=== PATIENT | male | born 1975 | race Caucasian/White ===

== ENCOUNTER 2023-07-06 21:38 | Emergency (ER) | payer OTHER ==
[~2023-07-06] VITALS: Ht 172.7 cm; Wt 74.8 kg
[~2023-07-06 21:38] MED LIST: MOTRIN800 MG PO
[2023-07-06] MEDS ORDERED: LISINOPRIL20 MG PO (22:09)
[2023-07-06] MEDS ORDERED: VITAMIN D310 MC2 PO (22:09)
[2023-07-06] MEDS ORDERED: PRILOSEC20 M1 PO (22:10)
[2023-07-06] MEDS ORDERED: CYCLOBENZAPRINE5 M3 PO (22:27)
== END 2023-07-06 22:43 | disposition home or self-care (01) ==
LOC: ED 21:38
DX: S16.1XXA Strain of muscle, fascia and tendon at neck level, initial encounter (principal); Z79.899 Other long term (current) drug therapy; X50.0XXA Overexertion from strenuous movement or load, initial encounter; Y93.K1 Activity, walking an animal; Y92.89 Other specified places as the place of occurrence of the external cause; Y99.8 Other external cause status